=== PATIENT | female | born 1985 | race African-American/Black ===

== ENCOUNTER 2022-01-12 12:00 | Emergency (ER) | payer SELFPAY ==
[~2022-01-12] VITALS: Ht 175.3 cm; Wt 68.2 kg
[2022-01-12 12:05] VITALS: TEMP 97.7
[2022-01-12] MEDS ORDERED: AMOXICILLIN 8751 TAB PO (16:31)
[2022-01-12] MEDS ORDERED: ROXICODONE 55 MG/TAB PO (16:31)
[2022-01-12 16:36] VITALS: BP 112/66; PULSE 69
== END 2022-01-12 17:00 | disposition home or self-care (01) ==
LOC: COL.ER 12:00
DX: S81.851A Open bite, right lower leg, initial encounter (principal); Z28.310 Unvaccinated for COVID-19; W54.0XXA Bitten by dog, initial encounter
CPT/HCPCS: J0295

== ENCOUNTER 2022-01-13 05:58 | Outpatient (RCR) | payer SELFPAY ==
[~2022-01-13 05:58] MED LIST: ALBUTEROL0.09 MG/A1 IH; AMOXICILLIN 50500 MG PO; AMOXICILLIN 8751 TAB PO; BIRTH CONTROL; EPIPEN 2-PAK1 MG/ML IM; FLAGYL500 MG PO; NEXIUM 20MG CAP20 MG PO; NO HOME MEDICATIONS; PHENERGAN W/CO120 ML PO; PREDNISONE20 MG PO; PROAIR HFA0.09 MG/AC IH; ROXICODONE 55 MG/TAB PO; TAMIFLU 75MG75 MG PO; ZANTAC 150150 MG PO; ZITHROMAX500 M2 PO
[2022-01-15 21:07] VITALS: BP 108/79; PULSE 97; TEMP 98
== END 2022-01-18 ==
LOC: COL.ER → EDBD 01-15 20:56
DX: Z29.14 Encounter for prophylactic rabies immune globulin (principal)

== ENCOUNTER 2022-01-21 00:56 | Inpatient (IN) | payer SELFPAY ==
[~2022-01-21] VITALS: Ht 177.8 cm; Wt 83.2 kg
[~2022-01-21 00:56] MED LIST changes: -ALBUTEROL0.09 MG/A1 IH; -AMOXICILLIN 50500 MG PO; -BIRTH CONTROL; -EPIPEN 2-PAK1 MG/ML IM; -FLAGYL500 MG PO; -NEXIUM 20MG CAP20 MG PO; -NO HOME MEDICATIONS; -PHENERGAN W/CO120 ML PO; -PREDNISONE20 MG PO; -PROAIR HFA0.09 MG/AC IH; -TAMIFLU 75MG75 MG PO; -ZANTAC 150150 MG PO; -ZITHROMAX500 M2 PO
[2022-01-21 01:55] LABS: BASO % 0.5 % (0.0-2.0); EOS # 0.5 K/mm3 (0.0-0.7); GRAN # 3.8 K/mm3 (1.4-6.5); GRAN % 56.5 % (42.2-75.2); HEMOGLOBIN 10.9 g/dl (12.5-16.0); LYMPH # 1.8 K/mm3 (1.2-3.4); MEAN CELL VOLUME 86 fl (80.0-100.0); MEAN CORPUSCULAR HEMOGLOBIN 28 pg (27-31); MEAN CORPUSCULAR HGB CONC 33 g/dl (33.0-37.0); MEAN PLATELET VOLUME 9.7 fl (7.4-10.4); MONO # 0.5 K/mm3 (0.1-0.6); MONO % 7.7 % (1.7-9.3); PLATELET COUNT 291 K/mm3 (130-400); RED BLOOD COUNT 3.86 M/mm3 (4.10-5.30); REDCELL DISTRIBUTION WIDTH-CV 14.9 % (11.5-14.5)
[2022-01-21 02:06] LABS: HEMATOCRIT 33.1 % (37.0-47.0)
[2022-01-21 02:08] LABS: ALBUMIN 3.5 gm/dL (3.5-5.0); BILIRUBIN,TOTAL 0.3 mg/dL (0.2-1.2); CREATININE, serum 0.79 mg/dL (0.57-1.11); POTASSIUM 4.1 mmol/L (3.5-4.5)
--- NOTE | 2022-01-21 04:25 | NUR ---
PT ARRIVES TO ROOM 329 PER CART FROM ED.
[2022-01-21 04:31] VITALS: BP 114/78; PULSE 82; TEMP 98.1
[2022-01-21] MEDS ORDERED: MOTRIN 200200 MG/TAB PO (04:38)
--- NOTE | 2022-01-21 05:28 | NUR ---
MEDICATED WITH DILAUDID 0.25MG IVP FOR PAIN TO RLE.
--- NOTE | 2022-01-21 06:45 | NUR ---
awake resting in bed, bedside shift report received from LETY Arias
--- NOTE | 2022-01-21 06:55 | NUR ---
PT HCG NEGATIVE, CT NOTIFIED. IVF CAPPED TO LEFT AC FOR TRANSPORT TO CT.
--- NOTE | 2022-01-21 07:07 | NUR ---
DR COLLINS NOTIFIED OF CONSULT.
[2022-01-21 07:22] VITALS: BP 124/75; PULSE 78; TEMP 98
--- NOTE | 2022-01-21 08:30 | NUR ---
sitting up in bed eating breakfs,t denies needs states she is just tired of the dog bite situation.
--- NOTE | 2022-01-21 08:45 | NUR ---
finished breakfast and tolerated well, full assessment completed, see interventions for further info, right lower leg with lacerations around calf from dog bite, has yellowish area to 2 areas and yellow drainage on pillow case, states the pain comes and goes and when she has pain it is a shooting pain, resting comfortably at this time
--- NOTE | 2022-01-21 10:33 | NUR ---
appears to be sleeping, in bed with eyes closed, resp quiet and easy
[2022-01-21 11:32] VITALS: BP 112/49; PULSE 59; TEMP 98.2
[2022-01-21 11:39] VITALS: BP 120/71; PULSE 82; TEMP 98.3
--- NOTE | 2022-01-21 12:15 | NUR ---
sleeping, awakened and right leg cleaned with hibiclens scrub, then covered with wet 4x4s and wrapped with kerlix, then knee high PURA hose on, states the compression feels good, has ordered lunch
--- NOTE | 2022-01-21 13:50 | NUR ---
up to bathroom with use of walker and stated that helped a lot
[2022-01-21 16:30] VITALS: BP 112/61; PULSE 96; TEMP 98.1
--- NOTE | 2022-01-21 16:56 | NUR ---
patient has an unproductive cough and some sniffles, asking about a blood test to check for covid, explained to her there is no blood test and she had covid test done this am that was negative, spoke with Dr Willard and will get chest xray
--- NOTE | 2022-01-21 18:59 | NUR ---
bedside shift report Sarkis Cochran
[2022-01-21 20:50] VITALS: BP 111/65; PULSE 92; TEMP 98.7
[2022-01-22] VITALS (8 sets, daily range): BP systolic 109–156; BP diastolic 61–82; PULSE 73–87; TEMP 98.1–99
--- NOTE | 2022-01-22 05:39 | NUR ---
IV pain meds requested x2 tonight, dressing to RLE changed x1. up to restroom ad uli, INT to LAC intact/patent
[2022-01-22 06:26] LABS: BASO % 0.6 % (0.0-2.0); EOS # 0.5 K/mm3 (0.0-0.7); EOS % 7.8 % (0.0-4.0); GRAN # 3.8 K/mm3 (1.4-6.5); GRAN % 54.6 % (42.2-75.2); HEMOGLOBIN 10.7 g/dl (12.5-16.0); LYMPH % 28.2 % (20.0-51.0); MEAN CELL VOLUME 84 fl (80.0-100.0); MEAN CORPUSCULAR HEMOGLOBIN 28 pg (27-31); MEAN CORPUSCULAR HGB CONC 33 g/dl (33.0-37.0); MEAN PLATELET VOLUME 9.9 fl (7.4-10.4); MONO # 0.6 K/mm3 (0.1-0.6); MONO % 8.7 % (1.7-9.3); PLATELET COUNT 312 K/mm3 (130-400); RED BLOOD COUNT 3.89 M/mm3 (4.10-5.30); REDCELL DISTRIBUTION WIDTH-CV 14.8 % (11.5-14.5)
[2022-01-22 06:43] LABS: HEMATOCRIT 32.7 % (37.0-47.0)
--- NOTE | 2022-01-22 11:19 | NUR ---
DRESSING CHANGED AT 1100 PER [facility] ORDERS, WOUND WITH SOME YELLOW DRAINAGE, MINIMAL REDNESS.
--- NOTE | 2022-01-22 11:29 | NUR ---
Ambulatory Technologist attempted intake, however patient is sleeping and did not wake after SW knocked. SW will attempt intake at a later time.
--- NOTE | 2022-01-23 00:32 | NUR ---
PATIENT ALERT AND ORIENTED, ALTHOUGH SEEMS VERY DROWSY AND IS RESTING IN BED WITH HER PARTNER. PRN NORCO GIVEN WITH HS MEDS, AND DRESSING CHANGE COMPLETED PER ORDER. PATIENT CALLED OUT STATING HER VAGINA HAS A SMELLY ODOR AND BELIEVES THIS TO BE FROM HER ABX.
[2022-01-23 03:32] VITALS: BP 108/64; PULSE 71; TEMP 98.4
[2022-01-23 06:15] LABS: BASO % 0.5 % (0.0-2.0); EOS # 0.6 K/mm3 (0.0-0.7); GRAN # 3.1 K/mm3 (1.4-6.5); GRAN % 50.1 % (42.2-75.2); HEMOGLOBIN 11.5 g/dl (12.5-16.0); LYMPH % 32.9 % (20.0-51.0); MEAN CELL VOLUME 87 fl (80.0-100.0); MEAN CORPUSCULAR HEMOGLOBIN 28 pg (27-31); MEAN CORPUSCULAR HGB CONC 32 g/dl (33.0-37.0); MEAN PLATELET VOLUME 9.7 fl (7.4-10.4); MONO # 0.5 K/mm3 (0.1-0.6); MONO % 7.3 % (1.7-9.3); PLATELET COUNT 317 K/mm3 (130-400); RED BLOOD COUNT 4.11 M/mm3 (4.10-5.30); REDCELL DISTRIBUTION WIDTH-CV 14.7 % (11.5-14.5)
[2022-01-23 06:18] LABS: HEMATOCRIT 35.9 % (37.0-47.0)
[2022-01-23 06:31] LABS: CREATININE, serum 0.74 mg/dL (0.57-1.11); POTASSIUM 4.5 mmol/L (3.5-4.5)
--- NOTE | 2022-01-23 06:40 | NUR ---
appears to be sleeping, in bed with lights off, eyes closed, resp quiet and easy, bedside shift report received from LETY Vargas
[2022-01-23 07:38] VITALS: BP 94/57; PULSE 68; TEMP 98.5
--- NOTE | 2022-01-23 08:45 | NUR ---
awake and had breakfast, is smiling and happy this am, full assessment completed, see interventions for further info, swelling to right leg is definitely less swollen than on Saturday
[2022-01-23] MEDS ORDERED: AMOXICILLIN 8751 TAB PO (09:15)
--- NOTE | 2022-01-23 09:37 | NUR ---
Silver Spray Worker met with patient to discuss discharge planning, patient to discharge home today. Patient lives here in [place] with her friends and does not have a primary care physician. Patient is self pay and is agreeable to have appointment made at [facility]. Patient obtains medications from [facility] and advised she utilizes [facility]. Patient advised she can afford her antibiotic being prescribed today. Patient has a walker at home and reports independence with ADLS. Patient does not have Advance Directives. Patient is not and has no children. Patient's legal next of kin would be her mother, Leandra Murphy (ph#[phone]). Patient plans to return home today and is in need of a taxi voucher. KATHY provided to RN. KATHY also contacted [facility] and scheduled appointment for 02/01/22 at 1245. KATHY provided to community organization director. Discharge Plan: Home
--- NOTE | 2022-01-23 10:00 | NUR ---
in bed and appears to be sleeping,
--- NOTE | 2022-01-23 11:14 | NUR ---
awakened and meds given, will plan discharge after IV meds given
--- NOTE | 2022-01-23 11:46 | NUR ---
sitting up in bed eating lunch
--- NOTE | 2022-01-23 12:30 | NUR ---
is dressed and ready for discharge, states she needs a dose of the rabies vaccine before she leaves and also a tetanus vaccine, Macy WILLARD notified
[2022-01-23 12:37] VITALS: BP 104/60; PULSE 78; TEMP 98.3
--- NOTE | 2022-01-23 13:00 | NUR ---
discharge instructions given to pateint and verbalizes understanding
--- NOTE | 2022-01-23 13:10 | NUR ---
discharged per WC
== END 2022-01-23 13:10 | disposition home or self-care (01) | DRG 602 ==
LOC: COL.ER 00:56 → SURG 02:42 → EDBD 01-23 13:10 → SURG 01-23 13:10
PROVIDERS: Nurse Practitioner Family; Physician Assistant; Student in an Organized Health Care Education/Training Program; ADMIT Internal Medicine
DX: L03.115 Cellulitis of right lower limb (principal); M72.6 Necrotizing fasciitis; I96 Gangrene, not elsewhere classified; T79.7XXA Traumatic subcutaneous emphysema, initial encounter; F17.210 Nicotine dependence, cigarettes, uncomplicated; Z20.822 Contact with and (suspected) exposure to COVID-19; R05.9 Cough, unspecified; S81.851A Open bite, right lower leg, initial encounter; S81.811A Laceration without foreign body, right lower leg, initial encounter; W54.0XXA Bitten by dog, initial encounter; Y93.89 Activity, other specified; Y92.89 Other specified places as the place of occurrence of the external cause
CPT/HCPCS: 99222-AI; 99232-AI; J1170; J1650; J2270; J2543; J7030; Q9967

== ENCOUNTER 2022-01-26 19:18 | Emergency (ER) | payer SELFPAY ==
[~2022-01-26] VITALS: Ht 182.9 cm; Wt 81.8 kg
[~2022-01-26 19:18] MED LIST changes: +ALBUTEROL0.09 MG/A1 IH; +AMOXICILLIN 50500 MG PO; +BIRTH CONTROL; +EPIPEN 2-PAK1 MG/ML IM; +FLAGYL500 MG PO; +MOTRIN 200200 MG/TAB PO; +NEXIUM 20MG CAP20 MG PO; +NO HOME MEDICATIONS; +PHENERGAN W/CO120 ML PO; +PREDNISONE20 MG PO; +PROAIR HFA0.09 MG/AC IH; +TAMIFLU 75MG75 MG PO; +ZANTAC 150150 MG PO; +ZITHROMAX500 M2 PO
[2022-01-26 20:04] VITALS: TEMP 97.1
[2022-01-26 22:06] VITALS: BP 121/71; PULSE 85
== END 2022-01-26 22:05 | disposition home or self-care (01) ==
LOC: COL.ER 19:18 → EDBD 19:18 → COL.ER 19:59
DX: S81.801A Unspecified open wound, right lower leg, initial encounter (principal); F17.200 Nicotine dependence, unspecified, uncomplicated; X58.XXXA Exposure to other specified factors, initial encounter